=== PATIENT | female | born 1965 | race Caucasian/White ===

== ENCOUNTER → 2016-08-01 | Outpatient (CLI) | payer OTHER, MEDICAID ==
--- NOTE | 2016-08-01 09:22 | CPEKG ---
Heart Rate: 84 RR Interval: 714 P-R Interval: 164 QRSD Interval: 66 QT Interval: 352 QTC Interval: 417 P [place]: 44 QRS [place]: 41 T Wave [place]: 51 EKG Severity - ABNORMAL ECG - EKG Impression: SINUS RHYTHM EKG Impression: PROBABLE POSTERIOR INFARCT Electronically Signed By: Ridge Wallace 01-Aug-2016 16:48:48
== END ==
LOC: FCP 09:00
PROVIDERS: ATTEND Internal Medicine
DX: Z86.718 Personal history of other venous thrombosis and embolism (principal); F25.1 Schizoaffective disorder, depressive type; I10 Essential (primary) hypertension

== ENCOUNTER → 2017-01-02 | Outpatient (CLI) | payer OTHER, MEDICAID ==
--- NOTE | 2017-01-02 16:25 | CPEKG ---
Heart Rate: 81 RR Interval: 741 P-R Interval: 168 QRSD Interval: 74 QT Interval: 356 QTC Interval: 414 P [place]: 53 QRS [place]: 49 T Wave [place]: 39 EKG Severity - ABNORMAL ECG - EKG Impression: SINUS RHYTHM EKG Impression: PROBABLE INFERIOR INFARCT, OLD Electronically Signed By: Ridge Wallcae 02-Jan-2017 16:36:53
== END ==
LOC: FCP 16:13
PROVIDERS: ATTEND Psychiatry & Neurology Psychiatry
DX: R94.31 Abnormal electrocardiogram [ECG] [EKG] (principal)

== ENCOUNTER 2017-01-10 09:50 | Emergency (ER) | payer OTHER, MEDICAID ==
[2017-01-10 10:18] VITALS: TEMP 99
--- NOTE | 2017-01-10 10:25 | EDPHY ---
H & P Time Seen by Provider: 01/10/17 10:10 HPI/ROS: CHIEF COMPLAINT: Port complication HISTORY OF PRESENT ILLNESS: The patient is a 51 yo female who presents to the ED within abnormal chest port. Patient is a [place] resident. She was brought to [facility] for ECT treatment. When she arrived at the treatment center they noticed that her port seem to be protruding. She was sent to the emergency department for further evaluation. The patient denies any recent symptoms of fevers or chills. She has no chest pain or shortness of breath. Patient states she has been at her baseline. REVIEW OF SYSTEMS: My complete review of systems is negative except as mentioned in the HPI. Past Medical/Surgical History: Past medical history includes DVT, hypothyroidism, schizophrenia, anemia, gout, diabetes, muscle weakness, hypertension new Past surgical history: Includes breast reduction, right internal jugular port Family history: Mother with breast cancer Social history: Patient is single. She does not smoke. Smoking Status: Never smoked Physical Exam: Vitals noted. Afebrile at 37.2. Heart rate 111. GENERAL: No acute distress, alert. HEENT: Eyes normal to inspection, normal pharynx, no signs of dehydration. NECK: No thyromegaly, no lymphadenopathy, supple. RESPIRATORY: Clear to auscultation bilaterally, no rales, rhonchi or wheezing. Chest wall: Patient's right chest wall has a notable port that is protruding slightly. There is no significant surrounding erythema. No palpable fluctuance. No discharge. No surrounding warmth. CVS: Regular rate and rhythm, no rubs, murmurs, or gallops. ABDOMEN: Soft, nontender, nondistended, no organomegaly. BACK: Normal to inspection, no CVA tenderness. SKIN: Normal color, no rash, warm, dry. No pallor. EXTREMITIES: No pedal edema, no joint swelling. NEURO/PSYCH: Alert and oriented, normal mood and affect, normal motor sensory exam. Constitutional: Initial Vital Signs Temperature (C) 37.2 C 01/10/17 10:13 Heart Rate 111 H 01/10/17 10:13 Respiratory Rate 16 01/10/17 10:13 Blood Pressure 119/84 H 01/10/17 10:13 O2 Sat (%) 92 01/10/17 10:13 O2 Delivery Mode Room Air Allergies/Adverse Reactions: lamotrigine [From Lamictal] Allergy (Unknown, Verified 01/09/17 11:59) Rash Fish Allergy (Uncoded 08/30/11 15:39) Seafood Allergy (Uncoded 08/30/11 15:38) Home Medications: Medication Instructions Recorded Acetaminophen [Tylenol 325mg (OTC)] 650 mg PO Q6 PRN 12/11/12 Allopurinol [Allopurinol 100 MG 100 mg PO DAILY 12/11/12 (RX)] GLIPIZIDE 01/09/17 Lantus 100 UNITS/ML (*) 01/09/17 Lisinopril 01/09/17 Metformin HCl 01/09/17 Novolog Mix 70/30 (*) 01/09/17 Propranolol HCl 01/09/17 Zyprexa 01/09/17 Cephalexin [Keflex (*)] 500 mg PO QID #12 cap 01/10/17 Coumadin 01/10/17 Medical Decision Making ED Course/Re-evaluation: I received a call from Dr. Viramontes prior to see the patient. He states patient was missed triage to the emergency department. He would prefer to she went to his office. I evaluated the patient. I re-paged Dr. Anglin and spoke with him regarding my findings and VS. He recommended no laboratory studies or imaging at this time. He is currently scrubbing into his surgical procedure but would come to the emergency department to remove the port. I discussed the plan with the patient. I answered all her questions. Dr. Anglin came emergency department to evaluate the patient. He removed patient's PowerPort. Sutures were placed. The patient was doing well post procedure. The patient was given warnings by Dr. Anglin. Dr. Anglin requested that I give the patient 3 days of Keflex. The patient was given warnings prior to leaving. She will return with worsening symptoms. Differential Diagnosis: My differential includes but is not limited to port complication, protrusion of port, bacteremia, sepsis, cellulitis, abscess, DVT Departure - Departure Disposition: Home, Routine, Self-Care Clinical Impression: Vascular port complication Qualifiers: Encounter type: initial encounter Qualified Code(s): T82.9XXA - Unspecified complication of cardiac and vascular prosthetic device, implant and graft, initial encounter Condition: Good Instructions: Acute Wounds (ED) Additional Instructions: Return with increasing redness, discharge, pain or any other concerns. Referrals: Bryan Anglin MD [Medical Doctor] - 5-7 days, call for appt.
[2017-01-10] MEDS ORDERED: CEPHALEXIN 500 MG CAP PO ONE (11:54)
[2017-01-10 12:11] VITALS: BP 116/81; PULSE 108; RESP 18; O2SAT 93
--- NOTE | 2017-01-10 21:15 | PDCONSULT ---
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 Port removed without difficulty - see op note dictated f/u in office
--- NOTE | 2017-01-10 21:47 | GOP ---
[f rep st] OPERATIVE REPORT DATE OF OPERATION: SURGEON: Bryan Anglin MD ANESTHESIA: Local anesthetic. PREOPERATIVE DIAGNOSIS: Dysfunctional Port-A-Cath. POSTOPERATIVE DIAGNOSIS: Dysfunctional Port-A-Cath. PROCEDURE PERFORMED: Excision of Port-A-Cath. FINDINGS: SPECIMENS: Port-A-Cath discarded. INDICATIONS: A 51-year-old patient with a history of depression on ECT. She has had a port for sev eral years. She was at the ECT site when they found the port to have eroded through the skin, and s cherelle it is unable to be used she was sent to the ER for infection control and definitive treatment. DESCRIPTION OF PROCEDURE: Patient is placed supine on the gurney. After obtaining verbal consent, her chest was prepped with Betadine and draped sterilely. Local anesthetic 1% Xylocaine with epinep hrine was infused in skin and subcutaneous tissue. Incision made in the skin transversely over the area of excoriation to previous. Prolene sutures are divided. The port was completely removed with out difficulty in the medial right chest. Hemostasis is assured with digital pressure at the insert ion site as well as along the track. The skin was then reapproximated using 4-0 Monocryl interrupte d fashion. Dressing was applied. The patient tolerated the procedure well. [facility] up [facility] in approximately 1 week to schedule replacement. COMPLICATIONS: None. /[id number]/MODL
== END 2017-01-10 12:37 | disposition home or self-care (01) ==
LOC: EDUNIT#
DX: T82.9XXA Unspecified complication of cardiac and vascular prosthetic device, implant and graft, initial encounter (principal); E11.9 Type 2 diabetes mellitus without complications; I10 Essential (primary) hypertension; Z79.84 Long term (current) use of oral hypoglycemic drugs; Z79.01 Long term (current) use of anticoagulants; Z79.4 Long term (current) use of insulin; Y82.8 Other medical devices associated with adverse incidents

== ENCOUNTER 2017-01-19 09:14 | Day surgery (SDC) | payer OTHER, MEDICAID ==
--- NOTE | 2017-01-19 09:39 | PDHPUP ---
History & Physical Update H&P update statement: This history and physical update is based on an assessment of the patient which was completed after admission or registration (within 24 hours), but prior to the surgery/procedure. H&P update: H&P reviewed & patient examined, no change in patient's condition since H&P completed
[2017-01-19] MEDS ORDERED: LIDOCAINE 1% 2 ML INJ ID PRN (10:07)
[2017-01-19] MEDS ORDERED: LR 1,000 ML IV ONE (10:07)
--- NOTE | 2017-01-19 10:43 | PDANEPAE ---
ANE History of Present Illness 51 year old female w/ history of significant mental illness undergoing ECT therapy presents for vascular access port placement. ANE Past Medical History - Cardiovascular History Hx Hypertension: Yes Hx Arrhythmias: No Hx Chest Pain: No Hx Coronary Artery / Peripheral Vascular Disease: No Hx CHF / Valvular Disease: No Hx Palpitations: No - Pulmonary History Hx COPD: No Hx Asthma/Reactive Airway Disease: No Hx Recent Upper Respiratory Infection: No Hx Oxygen in Use at Home: No Hx Sleep Apnea: No Sleep Apnea Screening Result - Last Documented: Positive - Neurologic History Hx Cerebrovascular Accident: No Hx Seizures: No Hx Dementia: No Neurologic History Comment: hx of schizophrenia-Oriented x2-3 per Yudy-nurse at [facility] - Endocrine History Hx Diabetes: Yes Hypothyroid: Yes Hyperthyroid: No Obesity: yes, severe Endocrine History Comment: DM. HYPOTHYROID - Renal History Hx Renal Disorders: No - Liver History Hx Hepatic Disorders: No - Neurological & Psychiatric Hx Hx Neurological and Psychiatric Disorders: Yes Neurological / Psychiatric History Comment: SCHIZOPHRENIA - Cancer History Cancer History Comment: unknown - Congenital Disorder History Hx Congenital Disorders: No - Other Health History Other Health History: ANEMIA. DVT. GOUT. muscle weakness - Chronic Pain History Chronic Pain: No - Surgical History Prior Surgeries: BREAST REDUCTION 2010. PORT AND PORT REPLACEMENT x2--26-16,2-16. ANE Review of Systems Review of systems is: negative - Exercise capacity Exercise capacity: >=4 METS METS (RN): 4 METS ANE Patient History - Allergies Allergies/Adverse Reactions: lamotrigine [From Lamictal] Allergy (Unknown, Verified 01/09/17 11:59) Rash Fish Allergy (Uncoded 08/30/11 15:39) Seafood Allergy (Uncoded 08/30/11 15:38) - Home Medications Home medications: home medication list seen and reviewed Home Medications: Acetaminophen [Tylenol 325mg (*)] 650 mg PO Q6 PRN 12/11/12 [Last Taken Unknown] Allopurinol [Allopurinol 100 MG (*)] 100 mg PO DAILY 12/11/12 [Last Taken 08:00] GLIPIZIDE 01/09/17 [Last Taken 01/18/17 12:00] Lantus 100 UNITS/ML (*) 01/09/17 [Last Taken 01/19/17 08:00] Lisinopril 01/09/17 [Last Taken 01/19/17 08:30] Metformin HCl 01/09/17 [Last Taken 01/18/17 12:00] Novolog Mix 70/30 (*) 01/09/17 [Last Taken 01/18/17 18:00] Propranolol HCl 01/09/17 [Last Taken 01/19/17 08:30] Zyprexa 01/09/17 [Last Taken 01/19/17 08:30] Coumadin 01/10/17 [Last Taken 01/14/17 18:00] Calcitriol 0.25 mcg PO 01/19/17 [Last Taken 01/18/17 12:00] - NPO status NPO Status: no food or drink >8 hours NPO Since - Liquids (Date): 01/18/17 NPO Since - Liquids (Time): 22:30 NPO Since - Solids (Date): 01/18/17 NPO Since - Solids (Time): 20:00 - Anes Hx Anes Hx: no prior problems - Smoking Hx Smoking Status: Never smoked Marijuana use: No - Alcohol Use Alcohol Use: None - Family Anes Hx Family Anes Hx: neg - N/A ANE Labs/Vital Signs - Vital Signs Vital Signs: reviewed preoperatively; see RN documention for details Blood Pressure: 135/79 Heart Rate: 75 Respiratory Rate: 18 O2 Sat (%): 96 Height: 162.56 cm Weight: 136.078 kg ANE Physical Exam - Airway Neck exam: FROM Mallampati Score: Class 4 Mouth exam: poor dentition, small mouth opening - Pulmonary Pulmonary: no respiratory distress - Cardiovascular Cardiovascular: regular rate and rhythym - ASA Status ASA Status: III ANE Anesthesia Plan Anesthesia Plan: general endotracheal anesthesia
[2017-01-19] MEDS ORDERED: fentaNYL 100 MCG/2 ML INJ ONE (10:46)
[2017-01-19] MEDS ORDERED: PROPOFOL 200 MG/20 ML VIAL ONE (10:47)
[2017-01-19] MEDS ORDERED: ROCURONIUM 50 MG/5 ML VIAL ONE (10:49)
[2017-01-19] MEDS ORDERED: LR 500 ML IV PRN (11:17)
[2017-01-19] MEDS ORDERED: NALOXONE HCL 0.4 MG/ML INJ IVP PRN (11:17)
[2017-01-19] MEDS ORDERED: ONDANSETRON 4 MG/2 ML VIAL IVP PRN (11:17)
[2017-01-19] MEDS ORDERED: fentaNYL 100 MCG/2 ML INJ IVP PRN (11:17)
[2017-01-19] MEDS ORDERED: ONDANSETRON 4 MG/2 ML VIAL ONE (11:19)
[2017-01-19] MEDS ORDERED: DEXAMETHASONE 4 MG/ML VIAL ONE (11:19)
[2017-01-19] MEDS ORDERED: SUGAMMADEX SODIUM 200 MG/2 ML VIAL IVP ONE ×2 (11:19)
--- NOTE | 2017-01-19 11:48 | POSTOPPROG ---
Post Op Note Date of Operation: 01/19/17 Surgeon: Nilson Maki Anesthesiologist: Alfonso Ceja Anesthesia: GET(General Endotracheal) Pre-op Diagnosis: PV insufficiency Post-op Diagnosis: Same Procedure: RIJ port with US and fluoro guidance Inf/Abcess present in the surg proc area at time of surgery?: No EBL: Minimal
[2017-01-19 12:12] VITALS: TEMP 97.5
[2017-01-19 12:59] VITALS: PULSE 67
--- NOTE | 2017-01-19 13:36 | POSTANESTH ---
Post Anesthetic Evaluation Cardiovascular Status: Normal, Stable, Similar to Pre-Op Cond Respiratory Status: Normal, Stable, Similar to Pre-op Cond. Level of Consciousness/Mental Status: Can Participate in Eval Pain Control: Adequate, Prn Tx Ordered Nausea/Vomiting Control: Adequate, Prn Tx Ordered Complications Possibly Related to Anesthesia: None Noted
[2017-01-19 14:05] VITALS: BP 148/72; RESP 13; O2SAT 96
--- NOTE | 2017-01-19 17:04 | GOP ---
[f rep st] OPERATIVE REPORT DATE OF OPERATION: 01/19/2017 SURGEON: Nilson Maki MD ANESTHESIA: General, Alfonso Ceja M.D. PREOPERATIVE DIAGNOSIS: 1. Peripheral venous insufficiency. 2. Schizophrenia. POSTOPERATIVE DIAGNOSIS: 1. Peripheral venous insufficiency. 2. Schizophrenia. PROCEDURE PERFORMED: Right internal jugular single-lumen PowerPort placement with ultrasound and fluoroscopic guidance. INDICATIONS: 51-year-old female with a long-standing history of schizophrenia. She is undergoing ECT therapy. She has had a long-standing port placement, which has previously eroded through her skin. She is undergoing a new port placement at this time. DESCRIPTION OF PROCEDURE: General anesthesia was induced. The jugular vein was directly punctured using ultrasound guidance. A guidewire passed smoothly into the atrium, as confirmed using fluoroscopy. A counterincision was made high on the chest wall overlying the clavicle. A standard size port was tunneled cephalad. The vein was dilated under direct fluoroscopic visualization , and the catheter passed down to the atrial junction without resistance. The port was secured to the pectoralis fascia with 2 Prolene sutures. Final fluoroscopy showed smooth contouring with the neck, as well as satisfactory positioning above the heart. The port flushed easily with heparinized saline solution. The wound was closed in layers with absorbables by Dermabond. The patient was taken to the recovery room awake uneventfully. /[id number]/MODL MTDD
== END 2017-01-19 14:01 | disposition home or self-care (01) ==
LOC: FSGY 09:14
PROVIDERS: ATTEND Surgery
DX: Z45.2 Encounter for adjustment and management of vascular access device (principal); T88.8XXA Other specified complications of surgical and medical care, not elsewhere classified, initial encounter; I87.2 Venous insufficiency (chronic) (peripheral); F20.9 Schizophrenia, unspecified; E66.01 Morbid (severe) obesity due to excess calories; Z68.43 Body mass index [BMI] 50.0-59.9, adult; E03.9 Hypothyroidism, unspecified; E11.9 Type 2 diabetes mellitus without complications; I10 Essential (primary) hypertension; Z86.718 Personal history of other venous thrombosis and embolism; Z79.01 Long term (current) use of anticoagulants
CPT/HCPCS: C1788; J1100; J2405; J2704; J3010

== ENCOUNTER → 2017-04-13 | Outpatient (CLI) | payer OTHER, MEDICAID | LOC: FIMAGING 13:53 | PROVIDERS: ATTEND Radiology Diagnostic Radiology | DX: Z13.820 Encounter for screening for osteoporosis (principal); N18.3 Chronic kidney disease, stage 3 (moderate); F25.1 Schizoaffective disorder, depressive type; Z86.718 Personal history of other venous thrombosis and embolism ==

== ENCOUNTER → 2017-05-24 | Outpatient (CLI) | payer OTHER, MEDICAID ==
--- NOTE | 2017-05-24 15:28 | CPEKG ---
Heart Rate: 81 RR Interval: 741 P-R Interval: 176 QRSD Interval: 74 QT Interval: 356 QTC Interval: 414 P [place]: 73 QRS [place]: 43 T Wave [place]: 51 EKG Severity - NORMAL ECG - EKG Impression: SINUS RHYTHM Electronically Signed By: Genaro Hernandez 24-May-2017 16:06:04
== END ==
LOC: FCP 15:07
PROVIDERS: ATTEND Psychiatry & Neurology Psychiatry
DX: Z01.810 Encounter for preprocedural cardiovascular examination (principal)